=== PATIENT | male | born 1950 ===

== ENCOUNTER 2020-10-18 16:11 | Inpatient (IN) ==
[2020-10-18] MEDS ORDERED: ONDANSETRON 4 MG/2 ML VIAL IV PRN (19:25)
[2020-10-18] MEDS ORDERED: hydrALAZINE 20 MG/1 ML VIAL IV PRN (19:25)
[2020-10-18] MEDS ORDERED: GLUCAGON 1 MG VIAL IM PRN (19:25)
[2020-10-18] MEDS ORDERED: ACETAMINOPHEN 325 MG TABLET PO PRN (19:25)
[2020-10-18] MEDS ORDERED: DEXTROSE 50% 25 GM/50 ML VIAL IV PRN ×2 (19:25)
[2020-10-18] MEDS ORDERED: ALBUTEROL/IPRATROPIUM 3 ML NEB RESP TX PRN (19:29)
[2020-10-18] MEDS ORDERED: guaiFENesin 200 MG/10 ML UDCUP PO PRN (19:49)
[2020-10-18 19:55] LABS: Basophils % 0.4 % (0.0-0.8); Eosinophils % 0.7 % (0.00-10.9); Hematocrit 31.5 VOL% (42.0-52.0); Hemoglobin 10.8 GM/DL (14.0-18.0); Immature Granulocytes % 0.4 %; Immature Granulocytes Absolute 0.02 #; Mean Corpuscular HGB Conc 34.3 GM/DL (32-36); Mean Platelet Volume 9.6 FL (9.6-12.0); Monocytes % 8.1 % (1.7-12.7); Neutrophils % 73.4 % (38.7-73.9); Platelet Count 288 T/CUMM (130-400); Red Blood Count 3.58 MC/CUMM (3.8-5.5); Red Cell Distribution Width 17.5 % (9.3-17.3); White Blood Count 5.7 T/CUMM (4-12)
[2020-10-18 20:25] LABS: Albumin 3.1 G/DL (3.4-5.0); Bilirubin,Total 1.7 MG/DL (0.2-1.0); Calcium 8.7 MG/DL (8.5-10.1); Osmolality,Calculated 255.8 MOS/KG (273-304); Thyroid Stimulating Hormone 1.26 uIU/ml (0.358-3.74); Total Protein 6.7 G/DL (6.4-8.3)
[2020-10-18] MEDS ORDERED: INSULIN REGULAR 100 UNIT/ML SUBCUT SCH (21:00)
[2020-10-18] MEDS: carvediloL 6.25 MG TABLET PO SCH (21:26)
[2020-10-18] MEDS: SODIUM CHLORIDE 1 GM TABLET PO SCH (21:26)
[2020-10-18] MEDS: ATORVASTATIN 80 MG TABLET PO SCH (21:26)
[2020-10-18] MEDS: INSULIN REGULAR 100 UNIT/ML SUBCUT SCH (21:31)
[2020-10-19 00:44] LABS: Bacteria,Urine Occasional /HPF (Few); Bilirubin,Urine Negative (Negative); Blood, Urine Negative (Negative); Glucose,Urine (UA) 50 mg/dL (Negative); Ketones,Urine Negative (Negative); Nitrite,Urine Negative (Negative); Protein,Urine 100 MG/DL; RBC,Urine 1 /HPF (0-4); Urine Appearance CLEAR (Clear); Urine Color Yellow (Yellow); Urine Specific Gravity 1.005 (1.001-1.035); Urine Urobilinogen < 2.0 EU/DL (0.2-1.0); WBC,Urine 1 /HPF (0-6)
[2020-10-19 06:24] LABS: Basophils % 0.7 % (0.0-0.8); Eosinophils # 0.1 10*3/uL (0.0-0.87); Eosinophils % 1.5 % (0.00-10.9); Hematocrit 27.1 VOL% (42.0-52.0); Hemoglobin 9.6 GM/DL (14.0-18.0); Immature Granulocytes % 0.3 %; Immature Granulocytes Absolute 0.02 #; Lymphocytes # 0.8 10*3/uL (1.4-4.0); Lymphocytes % 13.8 % (21.2-54.2); Mean Corpuscular HGB Conc 35.4 GM/DL (32-36); Mean Corpuscular Volume 85.5 FL (87-102); Mean Platelet Volume 10.1 FL (9.6-12.0); Neutrophils % 74.7 % (38.7-73.9); Platelet Count 238 T/CUMM (130-400); Red Blood Count 3.17 MC/CUMM (3.8-5.5); Red Cell Distribution Width 17.4 % (9.3-17.3); White Blood Count 5.9 T/CUMM (4-12)
[2020-10-19 06:54] LABS: Albumin 2.6 G/DL (3.4-5.0); Bilirubin,Total 1.8 MG/DL (0.2-1.0); Calcium 8.4 MG/DL (8.5-10.1); Osmolality,Calculated 260.5 MOS/KG (273-304); Risk Ratio 1.76; Total Protein 6.3 G/DL (6.4-8.3); VLDL CHOLESTEROL 14.4 MG/DL
[2020-10-19] MEDS: SODIUM CHLORIDE 1 GM TABLET PO SCH ×2 (09:01→21:50)
[2020-10-19] MEDS: PANTOPRAZOLE 40 MG TABLET PO SCH (09:01)
[2020-10-19] MEDS: carvediloL 6.25 MG TABLET PO SCH ×2 (09:01→21:50)
[2020-10-19] MEDS: ASPIRIN CHEW 81 MG TABLET PO SCH (09:01)
[2020-10-19] MEDS: ENOXAPARIN 30 MG/0.3 ML SYRINGE SUBCUT SCH (09:01)
[2020-10-19] MEDS: ISOSORBIDE MONONITRATE 30 MG TABLET PO SCH (09:01)
[2020-10-19] MEDS: CLOPIDOGREL 75 MG TABLET PO SCH (09:01)
[2020-10-19] MEDS: INSULIN REGULAR 100 UNIT/ML SUBCUT SCH ×4 (09:01→21:57)
[2020-10-19] MEDS: FUROSEMIDE 40 MG/4 ML VIAL IV SCH (21:50)
[2020-10-19] MEDS: ATORVASTATIN 80 MG TABLET PO SCH (21:50)
[2020-10-20 05:13] LABS: Basophils % 0.3 % (0.0-0.8); Eosinophils % 0.3 % (0.00-10.9); Hematocrit 29.8 VOL% (42.0-52.0); Hemoglobin 10.3 GM/DL (14.0-18.0); Immature Granulocytes % 0.2 %; Immature Granulocytes Absolute 0.01 #; Lymphocytes # 0.5 10*3/uL (1.4-4.0); Lymphocytes % 9.1 % (21.2-54.2); Mean Corpuscular HGB Conc 34.6 GM/DL (32-36); Mean Corpuscular Volume 86.6 FL (87-102); Monocytes % 6.2 % (1.7-12.7); Neutrophils % 83.9 % (38.7-73.9); Platelet Count 204 T/CUMM (130-400); Red Blood Count 3.44 MC/CUMM (3.8-5.5); Red Cell Distribution Width 17.4 % (9.3-17.3)
[2020-10-20 05:25] LABS: Calcium 8.6 MG/DL (8.5-10.1); Osmolality,Calculated 256.6 MOS/KG (273-304)
[2020-10-20] MEDS: INSULIN REGULAR 100 UNIT/ML SUBCUT SCH ×4 (08:34→21:39)
[2020-10-20] MEDS: FUROSEMIDE 40 MG/4 ML VIAL IV SCH (08:54)
[2020-10-20] MEDS: CLOPIDOGREL 75 MG TABLET PO SCH (08:54)
[2020-10-20] MEDS: ASPIRIN CHEW 81 MG TABLET PO SCH (08:54)
[2020-10-20] MEDS: ENOXAPARIN 30 MG/0.3 ML SYRINGE SUBCUT SCH (08:54)
[2020-10-20] MEDS: carvediloL 6.25 MG TABLET PO SCH ×2 (08:54→21:39)
[2020-10-20] MEDS: PANTOPRAZOLE 40 MG TABLET PO SCH (08:54)
[2020-10-20] MEDS: ISOSORBIDE MONONITRATE 30 MG TABLET PO SCH (08:54)
[2020-10-20] MEDS: SODIUM CHLORIDE 1 GM TABLET PO SCH ×2 (08:55→21:40)
[2020-10-20] MEDS: hydrALAZINE 25 MG TABLET PO SCH ×2 (15:42→21:39)
[2020-10-20] MEDS: FUROSEMIDE 40 MG TABLET PO SCH (15:42)
[2020-10-20] MEDS: ATORVASTATIN 80 MG TABLET PO SCH (21:39)
[2020-10-21 06:22] LABS: Basophils # 0.1 10*3/uL (0.0-0.2); Eosinophils # 0.2 10*3/uL (0.0-0.87); Eosinophils % 2.9 % (0.00-10.9); Hematocrit 26.3 VOL% (42.0-52.0); Hemoglobin 9.1 GM/DL (14.0-18.0); Immature Granulocytes % 0.2 %; Immature Granulocytes Absolute 0.01 #; Lymphocytes % 17.5 % (21.2-54.2); Mean Corpuscular HGB Conc 34.6 GM/DL (32-36); Mean Platelet Volume 10.6 FL (9.6-12.0); Monocytes % 9.5 % (1.7-12.7); Neutrophils % 68.9 % (38.7-73.9); Platelet Count 193 T/CUMM (130-400); Red Blood Count 2.99 MC/CUMM (3.8-5.5); Red Cell Distribution Width 17.8 % (9.3-17.3); White Blood Count 5.9 T/CUMM (4-12)
[2020-10-21 06:45] LABS: Calcium 8.4 MG/DL (8.5-10.1); Osmolality,Calculated 269.7 MOS/KG (273-304)
[2020-10-21] MEDS: CLOPIDOGREL 75 MG TABLET PO SCH (09:03)
[2020-10-21] MEDS: FUROSEMIDE 40 MG TABLET PO SCH ×2 (09:04→15:42)
[2020-10-21] MEDS: ENOXAPARIN 30 MG/0.3 ML SYRINGE SUBCUT SCH (09:04)
[2020-10-21] MEDS: SODIUM CHLORIDE 1 GM TABLET PO SCH (09:04)
[2020-10-21] MEDS: ISOSORBIDE MONONITRATE 30 MG TABLET PO SCH (09:04)
[2020-10-21] MEDS: hydrALAZINE 25 MG TABLET PO SCH ×2 (09:04→15:42)
[2020-10-21] MEDS: PANTOPRAZOLE 40 MG TABLET PO SCH (09:04)
[2020-10-21] MEDS: carvediloL 6.25 MG TABLET PO SCH (09:04)
[2020-10-21] MEDS: ASPIRIN CHEW 81 MG TABLET PO SCH (09:04)
[2020-10-21] MEDS: INSULIN REGULAR 100 UNIT/ML SUBCUT SCH ×2 (09:05→12:24)
[2020-10-21 16:15] VITALS: BP 122/70
== END 2020-10-21 17:16 | disposition home or self-care (01) | DRG 291 ==
LOC: N.TELES → SUATTDRO 18:14 → OBSVTOIN 18:14
PROVIDERS: ADMIT Internal Medicine; ATTEND Hospitalist

== ENCOUNTER 2020-10-26 08:12 | Observation (INO) ==
[2020-10-26 09:14] LABS: Basophils # 0.1 10*3/uL (0.0-0.2); Eosinophils # 0.3 10*3/uL (0.0-0.87); Eosinophils % 4.3 % (0.00-10.9); Hemoglobin 10.3 GM/DL (14.0-18.0); Immature Granulocytes % 0.5 %; Immature Granulocytes Absolute 0.03 #; Lymphocytes # 0.8 10*3/uL (1.4-4.0); Lymphocytes % 13.1 % (21.2-54.2); Mean Corpuscular HGB Conc 33.2 GM/DL (32-36); Mean Corpuscular Volume 88.8 FL (87-102); Neutrophils % 73.1 % (38.7-73.9); Platelet Count 205 T/CUMM (130-400); Red Blood Count 3.49 MC/CUMM (3.8-5.5); Red Cell Distribution Width 18.2 % (9.3-17.3)
[2020-10-26 09:29] LABS: INR 1.2; PT Patient Result 12.8 SECS (9.8-11.9); Partial Thromboplastin Time 31.3 SECS (23.9-33.8)
[2020-10-26 09:41] LABS: Albumin 2.9 G/DL (3.4-5.0); Bilirubin,Total 2.3 MG/DL (0.2-1.0); Calcium 8.7 MG/DL (8.5-10.1); Osmolality,Calculated 279.1 MOS/KG (273-304); Total Protein 6.6 G/DL (6.4-8.3)
[2020-10-26 10:04] LABS: Bilirubin,Urine Negative (Negative); Blood, Urine Negative (Negative); Glucose,Urine (UA) Negative (Negative); Ketones,Urine Negative (Negative); Mucus,Urine Occasional /LPF (Occasional); Nitrite,Urine Negative (Negative); Protein,Urine 100 MG/DL; RBC,Urine 1 /HPF (0-4); Urine Appearance CLEAR (Clear); Urine Color Straw (Yellow); Urine Specific Gravity 1.005 (1.001-1.035); Urine Urobilinogen < 2.0 EU/DL (0.2-1.0); WBC,Urine 1 /HPF (0-6)
[2020-10-26] MEDS ORDERED: ACETAMINOPHEN 325 MG TABLET PO PRN (12:13)
[2020-10-26] MEDS ORDERED: hydrALAZINE 20 MG/1 ML VIAL IV PRN (12:13)
[2020-10-26] MEDS ORDERED: DOCUSATE SODIUM 100 MG CAPSULE PO PRN (12:13)
[2020-10-26] MEDS ORDERED: DEXTROSE 50% 25 GM/50 ML VIAL IV PRN (12:13)
[2020-10-26] MEDS ORDERED: GLUCAGON 1 MG VIAL IM PRN (12:13)
[2020-10-26] MEDS ORDERED: ONDANSETRON 4 MG/2 ML VIAL IV PRN (12:13)
[2020-10-26] MEDS ORDERED: MAGNESIUM SULF RIDER 4 GM in PREMIX 1 EACH IV PRN (12:16)
[2020-10-26] MEDS ORDERED: MAGNESIUM SULF RIDER 2 GM in PREMIX 1 EACH IV PRN (12:16)
[2020-10-26] MEDS: FUROSEMIDE 40 MG/4 ML VIAL IV SCH (15:38)
[2020-10-26] MEDS: INSULIN REGULAR 100 UNIT/ML SUBCUT SCH ×2 (17:20→21:47)
[2020-10-26 17:56] LABS: Bilirubin,Urine Negative (Negative); Blood, Urine Negative (Negative); Glucose,Urine (UA) Negative (Negative); Ketones,Urine Negative (Negative); Nitrite,Urine Negative (Negative); Protein,Urine 100 MG/DL; RBC,Urine 1 /HPF (0-4); Urine Appearance CLEAR (Clear); Urine Color Straw (Yellow); Urine Specific Gravity 1.005 (1.001-1.035); Urine Urobilinogen < 2.0 EU/DL (0.2-1.0); WBC,Urine 1 /HPF (0-6)
[2020-10-26] MEDS: ENOXAPARIN 30 MG/0.3 ML SYRINGE SUBCUT SCH (21:47)
[2020-10-27 05:14] LABS: Basophils # 0.1 10*3/uL (0.0-0.2); Basophils % 0.9 % (0.0-0.8); Eosinophils # 0.2 10*3/uL (0.0-0.87); Eosinophils % 3.7 % (0.00-10.9); Hematocrit 28.7 VOL% (42.0-52.0); Hemoglobin 9.6 GM/DL (14.0-18.0); Immature Granulocytes % 0.2 %; Immature Granulocytes Absolute 0.01 #; Lymphocytes # 0.9 10*3/uL (1.4-4.0); Lymphocytes % 16.5 % (21.2-54.2); Mean Corpuscular HGB Conc 33.4 GM/DL (32-36); Mean Corpuscular Volume 88.3 FL (87-102); Mean Platelet Volume 9.7 FL (9.6-12.0); Monocytes % 9.1 % (1.7-12.7); Neutrophils % 69.6 % (38.7-73.9); Platelet Count 191 T/CUMM (130-400); Red Blood Count 3.25 MC/CUMM (3.8-5.5); Red Cell Distribution Width 18.1 % (9.3-17.3); White Blood Count 5.5 T/CUMM (4-12)
[2020-10-27 05:44] LABS: Calcium 8.6 MG/DL (8.5-10.1); Osmolality,Calculated 278.1 MOS/KG (273-304)
[2020-10-27] MEDS: INSULIN REGULAR 100 UNIT/ML SUBCUT SCH ×4 (09:00→21:49)
[2020-10-27] MEDS: INSULIN LISPRO 100 UNIT/ML SUBCUT SCH ×4 (09:01→21:49)
[2020-10-27] MEDS: ISOSORBIDE MONONITRATE 30 MG TABLET PO SCH (09:02)
[2020-10-27] MEDS: carvediloL 6.25 MG TABLET PO SCH ×2 (09:02→17:37)
[2020-10-27] MEDS: ASPIRIN EC 81 MG TABLET PO SCH (09:02)
[2020-10-27] MEDS: PANTOPRAZOLE 40 MG TABLET PO SCH (09:03)
[2020-10-27] MEDS: hydrALAZINE 25 MG TABLET PO SCH ×3 (09:03→21:48)
[2020-10-27] MEDS: CLOPIDOGREL 75 MG TABLET PO SCH (09:03)
[2020-10-27] MEDS: FUROSEMIDE 40 MG/4 ML VIAL IV SCH ×2 (09:04→15:42)
[2020-10-27] MEDS ORDERED: ATORVASTATIN 80 MG TABLET PO SCH (21:00)
[2020-10-27] MEDS: ENOXAPARIN 30 MG/0.3 ML SYRINGE SUBCUT SCH (21:48)
[2020-10-28 05:19] LABS: Basophils % 0.8 % (0.0-0.8); Eosinophils # 0.2 10*3/uL (0.0-0.87); Eosinophils % 3.1 % (0.00-10.9); Hematocrit 29.5 VOL% (42.0-52.0); Hemoglobin 9.8 GM/DL (14.0-18.0); Immature Granulocytes % 0.4 %; Immature Granulocytes Absolute 0.02 #; Mean Corpuscular HGB Conc 33.2 GM/DL (32-36); Mean Corpuscular Volume 88.3 FL (87-102); Mean Platelet Volume 10.5 FL (9.6-12.0); Monocytes % 8.8 % (1.7-12.7); Neutrophils % 66.9 % (38.7-73.9); Platelet Count 187 T/CUMM (130-400); Red Blood Count 3.34 MC/CUMM (3.8-5.5); Red Cell Distribution Width 18.1 % (9.3-17.3); White Blood Count 4.9 T/CUMM (4-12)
[2020-10-28 05:39] LABS: Osmolality,Calculated 281.7 MOS/KG (273-304)
[2020-10-28] MEDS: FUROSEMIDE 40 MG/4 ML VIAL IV SCH (08:20)
[2020-10-28] MEDS: hydrALAZINE 25 MG TABLET PO SCH (08:20)
[2020-10-28] MEDS: PANTOPRAZOLE 40 MG TABLET PO SCH (08:20)
[2020-10-28] MEDS: ISOSORBIDE MONONITRATE 30 MG TABLET PO SCH (08:20)
[2020-10-28] MEDS: carvediloL 6.25 MG TABLET PO SCH (08:20)
[2020-10-28] MEDS: CLOPIDOGREL 75 MG TABLET PO SCH (08:20)
[2020-10-28] MEDS: ASPIRIN EC 81 MG TABLET PO SCH (08:20)
[2020-10-28] MEDS: INSULIN LISPRO 100 UNIT/ML SUBCUT SCH ×2 (08:21→12:03)
[2020-10-28] MEDS: INSULIN REGULAR 100 UNIT/ML SUBCUT SCH ×2 (08:21→12:03)
[2020-10-28 11:52] VITALS: BP 120/57
== END 2020-10-28 12:42 | disposition home health service (06) ==
LOC: N.ED 08:12 → N.EDINP 08:12 → SUATTDRO 12:13 → N.EDINP 14:20 → N.TELES 14:36
PROVIDERS: ADMIT Family Medicine; ATTEND Internal Medicine

== ENCOUNTER 2020-12-07 11:05 | Inpatient (IN) ==
[2020-12-07 12:17] LABS: Basophils % 0.3 % (0.0-0.8); Eosinophils # 0.1 10*3/uL (0.0-0.87); Hematocrit 27.5 VOL% (42.0-52.0); Hemoglobin 9.7 GM/DL (14.0-18.0); Immature Granulocytes % 0.4 %; Immature Granulocytes Absolute 0.03 #; Lymphocytes # 0.7 10*3/uL (1.4-4.0); Lymphocytes % 9.2 % (21.2-54.2); Mean Corpuscular HGB Conc 35.3 GM/DL (32-36); Mean Corpuscular Volume 87.3 FL (87-102); Mean Platelet Volume 10.2 FL (9.6-12.0); Neutrophils % 82.1 % (38.7-73.9); Platelet Count 188 T/CUMM (130-400); Red Blood Count 3.15 MC/CUMM (3.8-5.5); White Blood Count 7.3 T/CUMM (4-12)
[2020-12-07 12:29] LABS: Albumin 2.7 G/DL (3.4-5.0); Calcium 8.2 MG/DL (8.5-10.1); Osmolality,Calculated 270.4 MOS/KG (273-304); Total Protein 6.2 G/DL (6.4-8.3)
[2020-12-07] MEDS ORDERED: FUROSEMIDE 40 MG/4 ML VIAL IV STA (13:08)
[2020-12-07] MEDS ORDERED: GLUCAGON 1 MG VIAL IM PRN (13:35)
[2020-12-07] MEDS ORDERED: DEXTROSE 50% 25 GM/50 ML VIAL IV PRN (13:35)
[2020-12-07] MEDS ORDERED: ONDANSETRON 4 MG/2 ML VIAL IV PRN (13:35)
[2020-12-07] MEDS ORDERED: ACETAMINOPHEN 325 MG TABLET PO PRN (13:35)
[2020-12-07] MEDS: INSULIN LISPRO 100 UNIT/ML SUBCUT SCH ×2 (17:40→20:10)
[2020-12-07] MEDS: SODIUM BICARBONATE 650 MG TABLET PO SCH (20:09)
[2020-12-07] MEDS: carvediloL 6.25 MG TABLET PO SCH (20:09)
[2020-12-07] MEDS: BRIMONIDINE 0.2% OPH SOLN 5 ML BOTTLE BOTH EYES SCH (20:10)
[2020-12-08 06:51] LABS: Basophils % 0.5 % (0.0-0.8); Eosinophils # 0.1 10*3/uL (0.0-0.87); Eosinophils % 1.2 % (0.00-10.9); Hematocrit 26.7 VOL% (42.0-52.0); Hemoglobin 9.2 GM/DL (14.0-18.0); Immature Granulocytes % 0.3 %; Immature Granulocytes Absolute 0.02 #; Lymphocytes # 0.7 10*3/uL (1.4-4.0); Lymphocytes % 11.9 % (21.2-54.2); Mean Corpuscular HGB Conc 34.5 GM/DL (32-36); Mean Platelet Volume 10.9 FL (9.6-12.0); Monocytes % 7.2 % (1.7-12.7); Neutrophils % 78.9 % (38.7-73.9); Platelet Count 187 T/CUMM (130-400); Red Cell Distribution Width 18.1 % (9.3-17.3)
[2020-12-08 07:32] LABS: Albumin 2.7 G/DL (3.4-5.0); Calcium 8.5 MG/DL (8.5-10.1); Osmolality,Calculated 275.8 MOS/KG (273-304); Thyroid Stimulating Hormone 1.34 uIU/ml (0.358-3.74); Total Protein 6.3 G/DL (6.4-8.3)
[2020-12-08] MEDS: INSULIN LISPRO 100 UNIT/ML SUBCUT SCH ×4 (08:22→20:12)
[2020-12-08] MEDS: PANTOPRAZOLE 40 MG TABLET PO SCH (08:43)
[2020-12-08] MEDS: SODIUM BICARBONATE 650 MG TABLET PO SCH ×2 (08:43→20:33)
[2020-12-08] MEDS: ISOSORBIDE MONONITRATE 30 MG TABLET PO SCH (08:43)
[2020-12-08] MEDS: ASPIRIN CHEW 81 MG TABLET PO SCH (08:43)
[2020-12-08] MEDS: POTASSIUM CHLORIDE 20 MEQ TABLET PO PRN ×3 (08:44→14:04)
[2020-12-08] MEDS: CLOPIDOGREL 75 MG TABLET PO SCH (08:44)
[2020-12-08] MEDS: ATORVASTATIN 80 MG TABLET PO SCH (08:44)
[2020-12-08] MEDS: carvediloL 6.25 MG TABLET PO SCH ×2 (08:44→20:33)
[2020-12-08] MEDS: FUROSEMIDE 40 MG/4 ML VIAL IV SCH (08:45)
[2020-12-08] MEDS: BRIMONIDINE 0.2% OPH SOLN 5 ML BOTTLE BOTH EYES SCH ×2 (08:48→20:33)
[2020-12-09 06:28] LABS: Basophils % 0.4 % (0.0-0.8); Eosinophils # 0.1 10*3/uL (0.0-0.87); Eosinophils % 1.6 % (0.00-10.9); Hemoglobin 9.4 GM/DL (14.0-18.0); Immature Granulocytes % 0.4 %; Immature Granulocytes Absolute 0.03 #; Lymphocytes # 0.9 10*3/uL (1.4-4.0); Lymphocytes % 11.9 % (21.2-54.2); Mean Corpuscular HGB Conc 33.6 GM/DL (32-36); Mean Corpuscular Volume 92.1 FL (87-102); Mean Platelet Volume 11.2 FL (9.6-12.0); Monocytes % 8.3 % (1.7-12.7); Neutrophils % 77.4 % (38.7-73.9); Platelet Count 193 T/CUMM (130-400); Red Blood Count 3.04 MC/CUMM (3.8-5.5); Red Cell Distribution Width 18.5 % (9.3-17.3); White Blood Count 7.3 T/CUMM (4-12)
[2020-12-09 06:51] LABS: Albumin 2.5 G/DL (3.4-5.0); Bilirubin,Total 1.9 MG/DL (0.2-1.0); Calcium 8.5 MG/DL (8.5-10.1); Osmolality,Calculated 285.2 MOS/KG (273-304); Total Protein 6.4 G/DL (6.4-8.3)
[2020-12-09] MEDS: INSULIN LISPRO 100 UNIT/ML SUBCUT SCH ×2 (08:15→11:48)
[2020-12-09] MEDS: ISOSORBIDE MONONITRATE 30 MG TABLET PO SCH (08:35)
[2020-12-09] MEDS: ATORVASTATIN 80 MG TABLET PO SCH (08:35)
[2020-12-09] MEDS: SODIUM BICARBONATE 650 MG TABLET PO SCH (08:35)
[2020-12-09] MEDS: PANTOPRAZOLE 40 MG TABLET PO SCH (08:35)
[2020-12-09] MEDS: ASPIRIN CHEW 81 MG TABLET PO SCH (08:35)
[2020-12-09] MEDS: carvediloL 6.25 MG TABLET PO SCH (08:35)
[2020-12-09] MEDS: BRIMONIDINE 0.2% OPH SOLN 5 ML BOTTLE BOTH EYES SCH (08:36)
[2020-12-09] MEDS: CLOPIDOGREL 75 MG TABLET PO SCH (08:36)
[2020-12-09] MEDS: FUROSEMIDE 40 MG/4 ML VIAL IV SCH (08:36)
[2020-12-09 11:37] VITALS: BP 118/71
[2020-12-09] MEDS ORDERED: DEXTROSE 50% 25 GM/50 ML VIAL IV PRN (13:22)
[2020-12-09] MEDS ORDERED: FUROSEMIDE 40 MG TABLET PO SCH (16:00)
== END 2020-12-09 14:20 | disposition home health service (06) | DRG 291 ==
LOC: N.ED 11:05 → N.EDINP 13:33 → N.TELES 15:55
PROVIDERS: ADMIT Internal Medicine; ATTEND Internal Medicine